=== PATIENT | female | born 1985 | race Two or more races ===

== ENCOUNTER 2020-04-09 10:23 | Outpatient (CLI) | payer OTHER | END 2020-04-09 10:35 | disposition home or self-care (01) | LOC: RX STUDY 10:23 | PROVIDERS: ATTEND Obstetrics & Gynecology Reproductive Endocrinology | DX: N93.8 Other specified abnormal uterine and vaginal bleeding (principal); Q50.6 Other congenital malformations of fallopian tube and broad ligament ==

== ENCOUNTER 2025-06-04 09:14 | Emergency (ER) | payer OTHER ==
[~2025-06-04] VITALS: Ht 157.5 cm; Wt 71.7 kg
[2025-06-04] MEDS ORDERED: IBUPROFEN600 MG PO (12:54)
== END 2025-06-04 13:24 | disposition home or self-care (01) ==
LOC: ER 09:14
DX: S80.01XA Contusion of right knee, initial encounter (principal); W18.39XA Other fall on same level, initial encounter; Y93.89 Activity, other specified; Y92.89 Other specified places as the place of occurrence of the external cause; Y99.9 Unspecified external cause status